=== PATIENT | male | born 1955 | race African-American/Black ===

== ENCOUNTER 2018-02-21 19:49 | Emergency (ER) | payer BC, OTHER ==
[2018-02-21] MEDS ORDERED: Ibuprofen 800 MG TAB ONE (20:08)
--- NOTE | 2018-02-21 21:20 | RAD ---
RADIOGRAPH LEFT THIRD DIGIT 3 VIEWS: 02/21/18 at 8:14 p.m. HISTORY: 62-year-old male status post crush injury to middle finger. FINDINGS: There is a comminuted and essentially nondisplaced fracture of the distal tuft. No other fracture is visualized. No dislocation. There is a metallic 5 mm foreign body in the soft tissues to the ulnar si de of the neck of the second metacarpal, presumably chronic. IMPRESSION: Acute, traumatic, closed, nondisplaced fracture of the third distal tuft. POS: [facility]
== END 2018-02-21 21:14 | disposition home or self-care (01) ==
LOC: NAV ERS 19:49
DX: S62.663A Nondisplaced fracture of distal phalanx of left middle finger, initial encounter for closed fracture (principal); I10 Essential (primary) hypertension; F17.210 Nicotine dependence, cigarettes, uncomplicated; Z79.899 Other long term (current) drug therapy; W23.0XXA Caught, crushed, jammed, or pinched between moving objects, initial encounter; Y92.69 Other specified industrial and construction area as the place of occurrence of the external cause
CPT/HCPCS: 99001